=== PATIENT | female | born 2000 | race African-American/Black ===

== ENCOUNTER 2022-01-21 12:23 | Outpatient (RCR) | payer OTHER, SELFPAY | END 2022-04-12 23:59 | disposition home or self-care (01) | LOC: ANHLAB 12:23 | PROVIDERS: Visit Provider Advanced Practice Midwife | DX: O20.0 Threatened abortion (principal); Z3A.00 Weeks of gestation of pregnancy not specified | CPT/HCPCS: 36415; 84702; 85461 ==

== ENCOUNTER 2022-07-27 13:07 | Observation (INO) | payer OTHER, MEDICAID, SELFPAY ==
--- NOTE | ~2022-07-27 | US_ITS ---
EXAMINATION: US OB BPP wo non-stress DATE: 07/28/2022 07:57 INDICATION: Intrauterine growth restriction. Abnormal biophysical profile. Third trimester. TECHNIQUE: Real-time pelvic ultrasound was performed. COMPARISON: Ultrasound 07/27/2022 FINDINGS: There is a single living fetus in vertex presentation. The placenta is posterior. heart rate i s 132 beats per minute (bpm). The amniotic fluid index is 13.1 cm, which is normal. Biophysical profile performed by the technologist: breathing (30 sec sustained breathing in 30 minutes): 2 out of 2 movement (3 gross body movements in 30 minutes): 2 out of 2 tone (one episode of khoumyd-adwmgpkmu-clnwwup limb movement): 2 out of 2 Amniotic fluid pocket (2 cm): 2 out of 2 Total score: 8 out of 8 IMPRESSION: 1. Single living fetus in vertex presentation. 2. Biophysical profile 8 out of 8. Reviewed, dictated and finalized at location A.
--- NOTE | ~2022-07-27 | US_ITS ---
US OB limited w BPP DATE: 07/27/2022 15:19 INDICATION: Intrauterine growth retardation TECHNIQUE: Real-time imaging and Doppler analysis COMPARISON: None FINDINGS: Live single intrauterine gestation, fetus in longitudinal lie, vertex presentation. h eart rate of 141 bpm. Posterofundal placenta. Amniotic fluid index measures 12.4 cm, with a subjectively normal amount of amniotic fluid. BIOPHYSICAL PROFILE reported by radiological technician: breathin out of 2 movement: 0 out of 2 tone: 2 out of 2 Amniotic fluid pocket: 2 out of 2 Total score: 6 out of 8 IMPRESSION: Biophysical profile score of 6 out of 8 Reviewed, dictated and finalized at Location A. Reviewed, dictated and finalized at location B.
--- NOTE | 2022-07-27 13:07 | OBADM ---
This patient, Serenity Meléndez, admitted to the OB room OB Post 117 for observation. Patient/family oriented to hospital policies and general routines including ID bracelet, bed and alarms, visiting hours, pain management, procedures, bathroom and other care routines, personal items, smoking policy, room service/diet, and visiting hours. Patient/Family are encouraged to report perceived risks to care and to ask questions if they do not understand what they are told or what they should do.
[2022-07-27 13:30] VITALS: BP 123/79; PULSE 94
[2022-07-27 13:45] VITALS: BP 131/85; PULSE 87
[2022-07-27 14:00] VITALS: BP 123/78; PULSE 91
[2022-07-27 14:15] VITALS: BP 122/71; PULSE 85
--- NOTE | 2022-07-27 14:27 | PC.NURSE ---
Dr. Pozo notified of pt arrival. Pt on the monitor for 1 hour and strip reviewed with provider. Pt to have BPP with ARABELLA and 30 min of monitoring after she gets back.
[2022-07-27 14:30] VITALS: BP 119/76; PULSE 85
--- NOTE | 2022-07-27 16:05 | PC.NURSE ---
Dr. Pozo updated on pt results from BPP and ARABELLA. tracing reviewed over the phone with provider. ordered the pt stay overnight and have repeat BPP in the AM.
--- NOTE | 2022-07-27 17:15 | PC.NURSE ---
pt requesting to speak with MD about staying. Pt is not wanting to stay.
[2022-07-27 23:29] VITALS: BP 117/69; PULSE 81
--- NOTE | 2022-07-28 07:12 | PM.IMHP ---
H&P: HPI History of Present Illness Date/Time: 07/28/22 07:12 Chief Complaint: Serenity is a 22yo G1 at 33w with IUGR here for extended monitoring after a deceleration on NST in the office. Then had BPP of 6/8 here yesterday. Overnight she had no complaints, good FM. FHT overnight 130, mod variability with accels, no decels. To US for repeat BPP this am. Review of Systems Review of Systems: All systems reviewed & are unremarkable except as noted in HPI and below Meds Home Medications and Allergies Allergies Allergy/AdvReac Type Severity Reaction Status Date / Time No Known Allergies Allergy Verified 07/27/22 17:30 Vital Signs Vital Signs - 24 hr 07/27/22 13:30 07/27/22 13:45 07/27/22 14:00 Pulse Rate 94 87 91 Blood Pressure 123/79 131/85 123/78 07/27/22 14:15 07/27/22 14:30 07/27/22 23:29 Pulse Rate 85 85 81 Blood Pressure 122/71 119/76 117/69 Exam Const: General: no acute distress Resp: Effort & Inspection: normal respiratory effort Auscultation: clear to auscultation bilaterally Cardio: Rate: regular rate Rhythm: regular rhythm GI: GI Palp: Yes Soft to palpation Extrem: General: normal to inspection Assessment and Plan Assessment and plan (1) IUGR (intrauterine growth restriction): Status: Acute (2) heart deceleration: Status: Acute Plan repeat BPP this am FHT category 1 since admission DC home if BPP 8/8 this am to continue surveillance in office
--- NOTE | 2022-07-28 07:56 | PC.NURSE ---
Dr Pozo notified of BPP of to [facility].
--- NOTE | 2022-07-30 07:46 | PM.OBTRLD ---
OB - Triage/Final Diagnosis Visit Information Comments/Additional reasons for admission: I have assessed the risk for this patient, Serenity Richardson Medhat, and determined that she would benefit from observation care. Final Diagnosis (1) IUGR (intrauterine growth restriction): Status: Acute (2) heart deceleration: Status: Acute
== END 2022-07-28 08:00 | disposition home or self-care (01) ==
PROVIDERS: Admitting Provider Obstetrics & Gynecology; Visit Provider Obstetrics & Gynecology
DX: O36.8330 Maternal care for abnormalities of the fetal heart rate or rhythm, third trimester, not applicable or unspecified (principal); O36.5930 Maternal care for other known or suspected poor fetal growth, third trimester, not applicable or unspecified; Z3A.33 33 weeks gestation of pregnancy
CPT/HCPCS: 76815; 76819; G0378; G0379

== ENCOUNTER 2022-08-13 15:15 | Outpatient (RCR) | payer OTHER, MEDICAID, SELFPAY ==
--- NOTE | ~2022-08-13 | US_ITS ---
EXAMINATION: US OB BPP wo non-stress DATE: 08/13/2022 16:45 INDICATION: IUGR during third trimester TECHNIQUE: Real-time pelvic ultrasound was performed. The interpreting radiologist was not present fo r the study. COMPARISON: 07/28/2022 FINDINGS: There is a single living fetus in vertex presentation. The placenta is posterior. heart rate is 155 beats per minute (bpm). Biophysical profile performed by the technologist: breathing (30 sec sustained breathing in 30 minutes): 2 out of 2 movement (3 gross body movements in 30 minutes): 2 out of 2 tone (one episode of lbsziym-oszjftusj-qobbrdk limb movement): 2 out of 2 Amniotic fluid pocket (2 cm): 2 out of 2 Total score: 8 out of 8 IMPRESSION: 1. Single living fetus in vertex presentation. 2. Biophysical profile 8 out of 8. Reviewed, dictated and finalized at location B.
--- NOTE | 2022-08-13 17:10 | PC.NURSE ---
Marcelina Basilio Rn called Alice Montalvo CNM to report BPP 8/8, reactive FHR tracing. Orders to discharge patient.
== END 2022-11-11 23:59 | disposition home or self-care (01) ==
LOC: ANHOBOP 15:15
PROVIDERS: Visit Provider Advanced Practice Midwife
DX: O36.5930 Maternal care for other known or suspected poor fetal growth, third trimester, not applicable or unspecified (principal); Z3A.35 35 weeks gestation of pregnancy
CPT/HCPCS: 59025; 76819

== ENCOUNTER 2022-08-22 19:39 | Inpatient (IN) | payer OTHER, MEDICAID, SELFPAY ==
[2022-08-22] VITALS (10 sets, daily range): BP systolic 120–139; BP diastolic 74–90; PULSE 79–92; RESP 16–18; TEMP 36.6–36.8; BMI 32.9
--- OUTSIDE RECORDS SUMMARY | 2022-08-22 19:46 | XMS_ITS | Encounter Summary ---
:2000 Author Reason for Visit OB 1st OB visit Assessment and Plan 1. screening for malformation 24 01/04 with EDC of 09/12 per patient. Cydney musa today at 18.1% ? US, obstetric, maternal evaluat ion + anatomy Discussion Note: None recorded.Patient educational handouts: No information available. Plan of Care Reminders Provider Appointments None recorded. ? ? Lab None recorded. ? ? Referral None recorded. ? ? Procedures None recorded. ? ? Surgeries None recorded. ? ? Imaging US, Obstetric, Maternal Evaluation + ? Anatomy Medications Name Start Date ? ? fluconazole 150 mg tablet ? TAKE 1 TABLET BY MOUTH Medications Administered None recorded. Vitals Height Weight BMI Blood Pressure 5 ft 1 in 164.8 lbs 31.1 kg/m2 110/70 mm[Hg] Results Lab Results None recorded. Allergies Code Code System Name Reaction Severity Onset NKDA ? ? ? Problems Name Status Onset Date Source ? Active 05/25/2022 ? Procedures Date Name Performed by ? 05/25/2022 US, Obstetric, Maternal Evaluation + Information not available Anatomy Vaccine List None recorded. Social History Tobacco Smoking Status Never Smoker What type of diet are you following? REGULAR What is your level of alcohol consumption? None Do you or have you ever used e-cigarettes or Never used elec tronic cigarettes vape? What is your exercise leve
--- OUTSIDE RECORDS SUMMARY | 2022-08-22 19:46 | XMS_ITS ---
:2000 Author Care Team Providers Name Role Phone Eve Montalvo Carol Primary Care Provider Unavailable Allergies Code Code System Name Reaction Severity Status Onset NKDA ? Medications Name Status Start Date Stop Date ? ? acyclovir 400 mg tablet Active ? Not avai lable TAKE ONE TABLET BY MOUTH FIVE TIMES DAILY FOR 10 DAYS fluconazole 150 mg tablet Completed ? 2021 TAKE 1 TABLET BY MOUTH Medrol (Gopi) 4 mg tablets in a dose pack Active ? Not available Take 1 dose pk by oral route. metronidazole 0.75 % (37.5 mg/5 gram) vaginal gel Completed ? 06/01/2022 Insert 1 applicatorful every day by vaginal route as directed f or 5 days. metronidazole 500 mg tablet Completed ? 06/2022 Take 1 tablet twice a day by oral route for 7 days. prednisone 20 mg tablet Active ? Not avai lable TAKE 3 TABLETS BY MOUTH ONCE DAILY FOR 7 DAYS Active ? Not available Slow Fe 142 mg (45 mg iron) tablet,extended release Active ? Not available Take 1 tablet every day by oral route. Problems Name Status Onset Date Source ? Active 03/09/2022 ? 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 Procedures Date Name Performed by ? 11/28/2018 Termination of Information not available 11/28/2018 Dilation and Curettage Information not a vailable 03/09/2022 US, Obstetric, Nuchal Translucency [facility] [address] [place] [address] (Bldv
--- OUTSIDE RECORDS SUMMARY | 2022-08-22 19:46 | XMS_ITS ---
:2000 Author Allergies Code Code System Name Reaction Severity Status Onset NKDA ? Medications Name Status Start Date Stop Date ? ? amoxicillin 500 mg capsule Completed ? 05/25 TAKE 1 CAPSULE BY MOUTH TWICE DAILY WITH FOOD clindamycin HCl 150 mg capsule Completed ? 0 05/25/2022 TAKE 2 CAPSULES BY MOUTH EVERY 12 HOURS FOR 7 DAYS clindamycin HCl 300 mg capsule Completed ? 0 05/25/2022 TAKE 1 CAPSULE BY MOUTH TWICE DAILY WITH FOOD WITH PROBIOTICS doxycycline monohydrate 100 mg capsule Completed ? 05/25/2022 TAKE 1 CAPSULE BY MOUTH TWICE DAILY FOR 7 DAYS fluconazole 150 mg tablet Active ? Not av ailable TAKE 1 TABLET BY MOUTH metronidazole 0.75 % (37.5 mg/5 gram) vaginal gel Completed ? 05/25/2022 INSERT 1 APPLICATORFUL VAGINALLY ONCE DAILY DIRECTED FOR 5 D AYS metronidazole 500 mg tablet Completed ? 04/29 TAKE 1 TABLET BY MOUTH TWICE DAILY FOR 7 DAYS Problems Name Status Onset Date Source ? Active 05/25/2022 ? Procedures Date Name Performed by ? 05/25/2022 US, Obstetric, Maternal Evaluation + Information not available Anatomy Results Lab Results None recorded. Past Encounters 05/25/2022 Screening for Malformation Marichuy Jensen, WAGNER: [address] [place] [address], Ph. Social History Tobacco Smoking Status Never Smoker Vaccine List None recorded. Plan of Care Reminders Provider Appointments None recorded.
--- OUTSIDE RECORDS SUMMARY | 2022-08-22 19:47 | XMS_ITS | Encounter Summary ---
:2000 Author Reason for Visit None recorded. Assessment and Plan 1. Low maternal weight gain ? US, obstetric, follow-up ? US, obstetric, biophysical profile ? US, doppler, umbilical artery v elocimetry Discussion Note: None recorded.Patient educational handouts: No information available. Plan of Care Reminders Provider Appointments Repeat Pap on or around Mignon Wagner 02/04/2023 Lab None recorded. ? ? Referral None recorded. ? ? Procedures None recorded. ? ? Surgeries None recorded. ? ? Imaging US, Obstetric, Follow-up 07/15/2022 [place] ? US, Obstetric, Biophysical 07/15/2022 [facility] Profile ? US, Doppler, 07/15/2022 [place] Umbilical Artery Velocimetry Medications Name Start Date ? ? acyclovir 400 mg tablet ? TAKE ONE TABLET BY MOUTH FIVE TIMES DAILY FOR 10 DAYS Medrol (Gopi) 4 mg tablets in a dose pack ? Take 1 dose pk by oral route. prednisone 20 mg tablet ? TAKE 3 TABLETS BY MOUTH ONCE DAILY FOR 7 DAYS ? Slow Fe 142 mg (45 mg iron) tablet,extended release ? Take 1 tablet every day by oral route. Medications Administered None recorded. Vitals None recorded. Results Lab Results None recorded. Allergies Code Code System Name Reaction Severity Onset NKDA ? ? ? Problems Name Status Onset Date Source ? Active 03/09/2022 ? Atypical Squamous Cells o
--- OUTSIDE RECORDS SUMMARY | 2022-08-22 19:47 | XMS_ITS | Encounter Summary ---
:2000 Author Reason for Visit None recorded. Assessment and Plan 1. growth restriction ? non-stress test Discussion Note: None recorded.Patient educational handouts: No information available. Plan of Care Reminders Provider Appointments Repeat Pap on or around 02/04/2023 Maine Weber CNM Lab None recorded. ? ? Referral None recorded. ? ? Procedures None recorded. ? ? Surgeries None recorded. ? ? Imaging Non-stress Test 07/27/2022 [place] Medications Name Start Date ? ? acyclovir [...] Dilation and Curettage Information not a vailable 07/15/2022 , Obstetric, Follow-up [place] [address] [place] [address]
--- OUTSIDE RECORDS SUMMARY | 2022-08-22 19:47 | XMS_ITS | Encounter Summary ---
:2000 Author Reason for Visit None recorded. Assessment and Plan 1. screening ? US, obstetric, follow-up Discussion Note: None recorded.Patient educational handouts: No information available. Plan of Care Reminders Provider Appointments Repeat Pap on or around 02/04/2023 Maine Weber CNM Lab None recorded. ? ? Referral None recorded. ? ? Procedures None recorded. ? ? Surgeries None recorded. ? ? Imaging US, Obstetric, 06/01/2022 [place] Follow-up Medications Name Start Date ? ? acyclovir [...] Dilation and Curettage Information not a vailable 06/01/2022 US, Obstetric, Follow-up [place]
--- OUTSIDE RECORDS SUMMARY | 2022-08-22 19:47 | XMS_ITS | Encounter Summary ---
:2000 Author Reason for Visit vaginal infection; OB visit; STD Screeni ng OB [id number] EDC 09/12/2022 LMP 12/06/2021 p atient also wants swabed for vaginal infection and std testing Assessment and Plan Assessment Note Patient is _28__weeks . Discuss ed plan. 1. Routine care 2. Vaginitis ? metronidazole 500 mg tablet Discussion Note: None recorded.Patient educational handouts: No information available. Plan of Care Reminders Provider Appointments Repeat Pap on or around 02/04/2023 Maine Weber CNM Lab None recorded. ? ? Referral None recorded. ? ? Procedures None recorded. ? ? Surgeries None recorded. ? ? Imaging None recorded. ? ? Medications Name Start Date ? ? acyclovir [...] oral route. Medications Administered None recorded. Vitals Height Weight BMI Blood Pressure 5 ft 1 in 164 lbs 31 kg/m2 108/62 mm[Hg] Results Lab Results None recorded. Allergies Code Code System Name Reaction Severity Onset NKDA ? ? ? Problems Name Status Onset Date Source ? Active 03/09/2022 ? 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
--- OUTSIDE RECORDS SUMMARY | 2022-08-22 19:47 | XMS_ITS | Encounter Summary ---
[...] None recorded. ? ? Imaging Non-stress Test 08/13/2022 [place] Medications Name Start Date ? ? acyclovir [...] not a vailable 07/15/2022 , Obstetric, Follow-up [place] [address] [place] [address]
--- OUTSIDE RECORDS SUMMARY | 2022-08-22 19:47 | XMS_ITS | Encounter Summary ---
[...] None recorded. ? ? Imaging Non-stress Test 08/20/2022 [place] Medications Name Start Date ? ? acyclovir [...] Dilation and Curettage Information not a vailable 07/20/2022 Non-stress Test [place] [address] [place] [address]
--- OUTSIDE RECORDS SUMMARY | 2022-08-22 19:47 | XMS_ITS | Encounter Summary ---
:2000 Author Reason for Visit None recorded. Assessment and Plan 1. condition affecting obstetrica l care of mother ? US, obstetric, biophysical profile Discussion Note: None recorded.Patient educational handouts: No information available. Plan of Care Reminders Provider Appointments Repeat Pap on or around MaineMignon Lugo 02/04/2023 Lab None recorded. ? ? Referral None recorded. ? ? Procedures None recorded. ? ? Surgeries None recorded. ? ? Imaging US, Obstetric, Biophysical 07/20/2022 [place] Profile Medications Name Start Date ? ? acyclovir [...] Dilation and Curettage Information not a vailable 06/23/2022 Holter Monitor [facility] (C
--- OUTSIDE RECORDS SUMMARY | 2022-08-22 19:47 | XMS_ITS | Encounter Summary ---
[...] None recorded. ? ? Imaging Non-stress Test 08/06/2022 [place] Medications Name Start Date ? ? acyclovir [...] not a vailable 07/15/2022 , Obstetric, Follow-up [place] [address] [place] [address]
--- OUTSIDE RECORDS SUMMARY | 2022-08-22 19:47 | XMS_ITS | Encounter Summary ---
:2000 Author Reason for Visit OB visit OB [id number] EDC 09/12/2022 LMP 12/06/2021 Assessment and Plan 1. Routine care Discussion Note: None recorded.Patient educational handouts: No [...] BMI Blood Pressure 5 ft 1 in 165 lbs 31.2 kg/m2 115/78 mm[Hg] Results Lab Results None recorded. Allergies Code Code System Name Reaction Severity Onset NKDA ? ? ? Problems Name Status Onset Date Source ? Active 03/09/2022 ? 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 Procedures Date Name Performed by ? 11/28/2018 Termination of Information not available 11/28/2018 Dilation and Curettage Information not a vailable 06/23/2022 Holter Monitor [facility] (C ardiology & Emg)
--- OUTSIDE RECORDS SUMMARY | 2022-08-22 19:47 | XMS_ITS | Encounter Summary ---
:2000 Author Reason for Visit None recorded. Assessment and Plan 1. Small for gestational age fetus ? US, obstetric, biophysical profile + non-stress test 2. growth restriction ? US, doppler, umbilical artery v elocimetry Discussion Note: None recorded.Patient educational handouts: No information available. Plan of Care Reminders Provider Appointments Repeat Pap on or around Mignon Wagner 02/04/2023 Lab None recorded. ? ? Referral None recorded. ? ? Procedures None recorded. ? ? Surgeries None recorded. ? ? Imaging US, Obstetric, Biophysical 07/30/2022 [facility] Profile + Non-stress Test ? US, Doppler, 07/30/2022 [place] Umbilical Artery Velocimetry Medications Name Start Date [...] Atypical Squamous Cells of Undetermined Significance Active 04/28/20
--- OUTSIDE RECORDS SUMMARY | 2022-08-22 19:47 | XMS_ITS | Encounter Summary ---
:2000 Author Reason for Visit OB visit OB [id number] EDC 09/12/2022 LMP 12/06/2021 Assessment and Plan Assessment Note Patient is _34__weeks . Discuss ed plan. 1. 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 Allergies Code Code System Name Reaction Severity Onset NKDA ? ? ? Problems Name Status Onset Date Source ? Active 03/09/2022 ? 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 Procedures Date Name Perfo
--- OUTSIDE RECORDS SUMMARY | 2022-08-22 19:47 | XMS_ITS | Encounter Summary ---
:2000 Author Reason for Visit OB visit OB [id number] EDC 09/12/2022 LMP 12/06/2021 Assessment and Plan [...] BMI Blood Pressure 5 ft 1 in 162 lbs 30.6 kg/m2 123/82 mm[Hg] Results Lab Results None recorded. Allergies Code Code System Name Reaction Severity Onset NKDA ? ? ? Problems Name Status Onset Date Source ? Active 03/09/2022 ? 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 Procedures Date Name Performed by ? 11/28/2018 Termination of Information not available 11/28/2018 Dilation and Curettage Information not a vailable 06/23/2022 Holter Monitor [facility] (C ardiology & Emg)
--- OUTSIDE RECORDS SUMMARY | 2022-08-22 19:47 | XMS_ITS | Encounter Summary ---
[...] None recorded. ? ? Imaging Non-stress Test 07/20/2022 [place] Medications Name Start Date ? ? acyclovir [...] Information not a vailable 06/23/2022 Holter Monitor [facility] (C ardiology & Emg) [address] [place] [address]
--- OUTSIDE RECORDS SUMMARY | 2022-08-22 19:47 | XMS_ITS | Encounter Summary ---
:2000 Author Reason for Visit OB visit OB [id number] EDC 09/12/2022 LMP 12/06/2021 Assessment and Plan Assessment Note Patient is __35_weeks . Discuss ed plan. 1. Routine care Discussion Note: None recorded.Patient [...] BMI Blood Pressure 5 ft 1 in 173 lbs 32.7 kg/m2 132/85 mm[Hg] Results Lab Results None recorded. Allergies Code Code System Name Reaction Severity Onset NKDA ? ? ? Problems Name Status Onset Date Source ? Active 03/09/2022 ? 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 Procedures Date Name Performed by ? 11/28/2018 Termination of Information not available 11/28
--- OUTSIDE RECORDS SUMMARY | 2022-08-22 19:47 | XMS_ITS | Encounter Summary ---
:2000 Author Reason for Visit OB visit OB [id number] EDC 09/12/2022 LMP 02/04/2022 Assessment and Plan Assessment Note Patient is __33_weeks . Discuss ed plan. 1. Routine care [...] BMI Blood Pressure 5 ft 1 in 166 lbs 31.4 kg/m2 124/79 mm[Hg] Results Lab Results None recorded. Allergies Code Code System Name Reaction Severity Onset NKDA ? ? ? Problems Name Status Onset Date Source ? Active 03/09/2022 ? 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 Procedures Date Name Performed by ? 11/28/2018 Termination of Information not available 11/28
--- OUTSIDE RECORDS SUMMARY | 2022-08-22 19:47 | XMS_ITS | Encounter Summary ---
:2000 Author Reason for Visit OB visit OB [id number] EDC 09/12/2022 LMP 12/06/2021 Assessment and Plan Assessment Note Patient is ___weeks . Discussed plan. Discussion Note: None recorded.Patient educational handouts: No [...] BMI Blood Pressure 5 ft 1 in 161 lbs 30.4 kg/m2 120/74 mm[Hg] Results Lab Results None recorded. Allergies [...]
--- OUTSIDE RECORDS SUMMARY | 2022-08-22 19:47 | XMS_ITS | Encounter Summary ---
:2000 Author Reason for Visit OB visit Assessment and Plan Assessment Note Patient is ___weeks . Discussed plan. 1. Routine care Discussion Note: None [...] BMI Blood Pressure 5 ft 1 in 171 lbs 32.3 kg/m2 131/88 mm[Hg] Results Lab Results None recorded. Allergies [...]
--- OUTSIDE RECORDS SUMMARY | 2022-08-22 19:47 | XMS_ITS | Encounter Summary ---
[...] None recorded. ? ? Imaging Non-stress Test 07/30/2022 [place] Medications Name Start Date ? ? acyclovir [...] not a vailable 07/15/2022 , Obstetric, Follow-up [place] [address] [place] [address]
--- NOTE | 2022-08-22 20:39 | LDADM ---
This patient, Serenity Meléndez, was admitted to Labor/Delivery/Recovery 108 on 08/22/22 at 19:39. Plans for labor, pain management and were discussed with patient. Patient/family oriented to hospital policies and general routines including ID bracelet, bed and alarms, visiting hours, pain management, procedures, bathroom and other care routines, personal items, smoking policy, room service/diet and guest tray routines, security routines, and visiting hours. Patient/Family are encouraged to report perceived risks to care and to ask questions if they do not understand what they are told or what they should do. See OBIX for further documentation.
[2022-08-22] MEDS: DINOPROSTONE 10 MG VAG INSERT VAGINAL (21:00)
[2022-08-22 21:09] LABS: Basophils Percent Auto 0.2 % (0.2-1.2); Eosinophils Absolute Auto 0.1 K/mm3 (0-0.3); Hematocrit 36.9 % (37.0-47.0); Hemoglobin 11.8 g/dL (12.0-15.0); Immature Granulocyte Absolute 0.03 K/mm3 (0.00-0.031); Immature Granulocyte Percent A 0.4 % (0-0.5); Lymphocytes Absolute Auto 1.83 K/mm3 (0.9-3.2); Lymphocytes Percent Auto 22.2 % (18.3-44.2); Mean Corpuscular Volume 90.7 fl (80-100); Mean Platelet Volume 12.9 fl (7.4-10.4); Monocytes Absolute Auto 0.7 K/mm3 (0.1-0.6); Monocytes Percent Auto 8.4 % (2.6-8.5); Neutrophils Absolute Auto 5.6 K/mm3 (1.3-6.7); Neutrophils Percent Auto 67.8 % (45.5-73.1); Platelet Count Result 215 k/mm3 (150-375); Red Blood Count 4.07 M/mm3 (4.2-5.4); Red Cell Distribution Width 16.7 % (11.5-14.5); White Blood Count 8.3 K/mm3 (4.5-10.0)
[2022-08-23] VITALS (172 sets, daily range): BP systolic 91–147; BP diastolic 49–122; PULSE 32–153; TEMP 36.5–37; O2SAT 80–100
[2022-08-23] MEDS: LACTATED RINGERS 1,000 ML 125 ML IV CONT ×3 (04:23→19:48)
[2022-08-23] MEDS: ONDANSETRON INJ 4 MG/2 ML VIAL IV PUSH (07:28)
[2022-08-23 07:53] LABS: Rapid Plasma Reagin Non-Reactive (NonReactive)
[2022-08-23] MEDS: fentaNYL CITRATE INJ (*CRX) 100 MCG/2 ML VIAL IV PUSH ×2 (08:58→10:01)
--- NOTE | 2022-08-23 15:21 | WPDOBADMIT ---
Obstetrics - Admit Note Admission Note: record reviewed. No pertinent additions to the history and/or any subsequent changes in the physical findings that are not consistent with the expected course of the were found. IOL for IUGR, pt had SROM this am, plan pitocin, anticipate vaginal delivery Additions to the history and/or subsequent changes in the physical findings follow. None.
[2022-08-23] MEDS: AMPICILLIN 2 GM/NS 100 ML 2 GM/100 ML BAG IVPB (15:40)
[2022-08-23] MEDS: OXYTOCIN 30 UNITS/NS 500 ML 30 UNITS/500 ML BAG 6 UNITS IV CONT (15:43)
[2022-08-23] MEDS: AMPICILLIN 1 GM/NS 50 ML 1 GM/50 ML BAG IVPB (19:48)
--- NOTE | 2022-08-23 22:39 | PM.OBPRVD ---
OB - Delivery Note Procedure Delivery date: 08/23/22 Procedure: Events: Intrauterine Growth Restriction (IUGR) Induction method: Per Pitocin Protocol and Per Cervidil Protocol Delivery augmentation: Pitocin Delivery monitor: External FHT and Internal Uterine Route of delivery: Laceration Description: None Specimen: Yes Quantitative Blood Loss (ml): 50 Anesthesia type: Epidural Disposition: Floor Narrative: baby to warmer for further assessment Baby Date of : 08/23/22 Time of : 22:25 Weeks of gestation at delivery: 37 Infant gender: Male presentation: vertex position: Right Occiput Anterior Placenta delivery description: Spontaneous Cord Vessel Description: 3 Vessels, Nuchal Cord, Loose, Clamped/Cut and Around Body
[2022-08-23] MEDS: OXYTOCIN 30 UNITS/NS 500 ML 30 UNITS/500 ML BAG 125 UNITS IV CONT (23:11)
[2022-08-24] VITALS (8 sets, daily range): BP systolic 102–138; BP diastolic 56–85; PULSE 76–92; RESP 16–18; TEMP 36.4–37.3; O2SAT 98–99
[2022-08-24] MEDS: WITCH HAZEL 40 PADS 1 PAD TOPICAL (00:49)
[2022-08-24] MEDS: IBUPROFEN 600 MG TABLET PO ×3 (04:55→22:51)
[2022-08-24 05:31] LABS: Hematocrit 35.4 % (37.0-47.0); Hemoglobin 11.4 g/dL (12.0-15.0)
--- NOTE | 2022-08-24 08:03 | PM.OBPNVD ---
OB - PN: Subj Subjective Date/time seen: 08/24/22 08:03 Patient comments: no complaints, pain well controlled, incisional pain, tolerating diet and flatus present OB - PN: Obj Data Labs CBC & Chem 7: 08/24/22 04:48 Labs: Laboratory Results - last 24 hr 08/24/22 04:48 Hgb 11.4 L Hct 35.4 L OB - PN A/P Plan day: 1 Plan: routine care Comments: No problems, routine care Time Spent With Patient Time: Total time spent is greater than 50% in coordination of care (as documented) at patient's floor/unit and/or counseling patient: Exam Const: General: comfortable, no acute distress and alert Resp: Effort & Inspection: normal respiratory effort Auscultation: no crackles, no rales and no rhonchi Cardio: Rate: regular rate Heart sounds: no click, no murmurs and no rubs GI: Inspection: non-distended GI Palp: No Tenderness to palpation present (GI) Auscultation: normal bowel sounds Other: Incision - CDI Extrem: General: normal to inspection, no pedal edema and no calf tenderness
--- NOTE | 2022-08-24 10:21 | WPDANLDPN2 ---
Anes-Prog Note L&D Date/Time: 08/24/22 10:21 Comfortable throughout: labor and delivery Neuraxial method: epidural Epidural/Spinal procedure site: clean & non-tender Neuro status: Neuro function grossly intact. Cardiovascular status: normal Respiratory status: normal Airway patency: baseline Mental status: baseline Post-Op hydration status: normal Vital Signs: Last Vital Signs Temp 36.6 C 08/24/22 07:50 Pulse 78 08/24/22 07:50 Resp 16 08/24/22 07:50 BP 102/56 L 08/24/22 07:50 Pulse Ox 98 08/24/22 07:50 O2 Del Method Room Air 08/24/22 04:40 Pain score (VAS): 2 I/O: Intake & Output 08/23/22 08/24/22 08/24/22 23:59 07:59 15:59 Intake Total 1650 1000 Balance 1650 1000 Patient feedback: Patient satisfied with anesthetic care.
[2022-08-24] MEDS: ACYCLOVIR 400 MG TABLET PO ×4 (10:30→22:51)
[2022-08-24] MEDS: MULTIVIT/MIN/PREN/FOL AC/IRON TABLET 1 TAB PO (10:30)
[2022-08-24] MEDS: predniSONE 20 MG TABLET PO (10:30)
--- NOTE | 2022-08-24 15:12 | PC.NURSE ---
1129 - Received report from primary RN. is being bottle fed in the nursery at this time.
[2022-08-25] MEDS: ACYCLOVIR 400 MG TABLET PO ×2 (05:12→09:53)
--- NOTE | 2022-08-25 07:28 | PM.OBPNVD ---
OB - PN: Subj Subjective Date/time seen: 08/25/22 07:28 s/p vaginal delivery day 2 OB - PN: Obj Data Labs CBC & Chem 7: 08/24/22 04:48 OB - PN A/P Plan day: 2 Plan: routine care and discharge home Time Spent With Patient Time: Total time spent is greater than 50% in coordination of care (as documented) at patient's floor/unit and/or counseling patient: Review of Systems Review of Systems: All systems reviewed & are unremarkable except as noted in HPI and below Exam Const: General: cooperative, healthy appearing and comfortable
--- NOTE | 2022-08-25 07:30 | PM.OBDSVD ---
DS: Admitting Diagnosis Discharge Date 08/25/22 Admitting Diagnosis iugr OB - DS: Summary OB Procedures : None OB Procedures Intrapartum: Spontaneous Vag Delivery OB Procedures: : None Time Spent with Patient Time attestation: Total time spent providing and/or coordinating discharge services: DS: Data Data Completed and Pending Pending studies at discharge: Pending at discharge 08/23/22 22:35 Surgical [PTH] Routine Discharge Plan Discharge Attending physician on discharge: Basia Randle Discharging Clinician: Eve Montalvo Patient Disposition: Home, Self-Care Activity: pelvic rest Diet: regular Patient Instructions: Antibiotic Form Stand Alone Forms: General Discharge Information Follow-up/Referrals: Eve Montalvo CNM [Certified Nurse Search Engine Optimization Consultant] - 4 Weeks Discharge Medications: New ibuprofen 600 mg Tablet 600 mg PO Q6H PRN (Reason: Cramping) Qty: 30 0RF Continued prednisone 20 mg Tablet 20 mg PO DAILY acyclovir 400 mg Tablet 400 mg PO 3XD Rx Instructions: 400 mg orally--patient states takes it 5XD for 10 Days #2 Tablet 1 tablet PO DAILY ferrous sulfate 142 mg (45 mg iron) Tablet Extended Release 142 mg PO DAILY Date of admission: 08/22/22 19:39 Primary Care Provider: PHYSICIAN,PLASTERER TENDER Admitting Provider: Basia Randle Attending physician on admission: Basia Randle Condition: Stable
[2022-08-25 08:45] VITALS: BP 139/88; PULSE 79; RESP 18; TEMP 36.3; O2SAT 100
[2022-08-25 09:30] VITALS: PULSE 79; RESP 18; O2SAT 100
[2022-08-25] MEDS: IBUPROFEN 600 MG TABLET PO (09:52)
[2022-08-25] MEDS: BENZOCAINE 20% AER SPR (*SP) 56 GM CAN 1 SPRAY TOPICAL (09:52)
[2022-08-25] MEDS: DOCUSATE SODIUM 100 MG CAPSULE PO (09:52)
[2022-08-25] MEDS: WITCH HAZEL 40 PADS 1 PAD TOPICAL (09:53)
[2022-08-25] MEDS: predniSONE 20 MG TABLET PO (09:53)
[2022-08-25] MEDS: MULTIVIT/MIN/PREN/FOL AC/IRON TABLET 1 TAB PO (09:56)
== END 2022-08-25 10:00 | disposition home or self-care (01) | DRG 807 ==
LOC: ANHLDR 19:44 → ANHOB2 08-24 01:10
PROVIDERS: Advanced Practice Midwife; Admitting Provider Obstetrics & Gynecology; Visit Provider Obstetrics & Gynecology
DX: O36.5930 Maternal care for other known or suspected poor fetal growth, third trimester, not applicable or unspecified (principal); Z37.0 Single live birth; O76 Abnormality in fetal heart rate and rhythm complicating labor and delivery; O69.81X0 Labor and delivery complicated by cord around neck, without compression, not applicable or unspecified; Z3A.37 37 weeks gestation of pregnancy
CPT/HCPCS: 36415; 85014; 85018; 85025; 86592; 86850; 86900; 86901; 88307; A9270; J0290; J2405; J2590; J2795; J3010; J7120; J7512